=== PATIENT | male | born 1950 | race Two or more races ===

== ENCOUNTER 2024-12-02 07:53 | Outpatient (AMB) | payer MEDICARE, SELFPAY ==
--- NOTE | 2024-12-02 07:59 | MHC.OFFVIS ---
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 HX of similar pain back in 2000. Patient reports a Slip and fall, landing on the right shoulder 09/25/24. Patient has been seen with [facility] and started physical therapy. MRI was ordered but denied at the time. He states that PT help him. Patient reports he is getting better but he is still having some discomfort. 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 The pain initiated following a fall on September 25, where the patient attempted to brace himself using his hand, leading to immediate shoulder pain. He engaged in physical therapy with some improvement in motion but continues to face limitation in fully elevating the shoulder, especially past 90 degrees, and discomfort with posterior reach. The symptoms are suspected by the patient to be associated with inflammation. Diabetes mellitus is a chronic condition in this patient and remains poorly controlled, contributing to complications in treatment options. [facility], [facility] Social History (Updated 12/02/24 @ 08:14 by Padmaja Loyola) Alcohol intake: never Patient Tobacco Use Status: Never used Tobacco Current occupational status: employed Current occupation: therapist Review of Systems Const All systems reviewed & are unremarkable except as noted in HPI and below Physical Exam Vital Signs: BMI result Body Mass Index 25.4 Const General: cooperative, healthy appearing and no acute distress Resp Effort & Inspection: normal respiratory effort and able to speak in complete sentences Cardio Rate: regular rate Peripheral pulses: Peripheral pulses 2+ throughout Skin Lesions: no lesions Rashes: no rashes Extrem Other: Right shoulder: Forward flexion abduction to 90 degrees. Able to reach T12. Able to reach end range with external rotation. No pain with cross-body reach. 3/5 strength with empty can. 5/5 strength with belly press and left off. Negative drop-arm. NVI. Office Procedures AMB Joint Injection/Aspiration Joint Injection/Aspiration Primary Site: right shoulder Prep: site was prepped using aseptic technique, ethochloride spray was applied and injection warnings given Injected: 40 mg of, DepoMedrol, with 8 mL of (2% plain lidocaine) and in the subcromial space Approach Used: posterolateral Procedure: The patient tolerated the procedure well, but had some pain with the injection and there was some relief with the local anesthesia Coding 91501 - Large joint Procedure code (CPT) selection complete Assessment & Plan Assessment & Plan (1) Painful arc syndrome of left shoulder: Code(s): M75.102 - Unspecified rotator cuff tear or rupture of left shoulder, not specified as traumatic Category: Medical (2) Rotator cuff injury: Code(s): S46.009A - Unspecified injury of muscle(s) and tendon(s) of the rotator cuff of unspecified shoulder, initial encounter Category: Medical (3) Diabetes: Code(s): E11.9 - Type 2 diabetes mellitus without complications Category: Medical Plan The patient is a 74-year-old right hand dominant male presenting with right shoulder pain. The pain initiated following a fall on September 25, where the patient attempted to brace himself using his hand, leading to immediate shoulder pain. He engaged in physical therapy with some improvement in motion but continues to face limitation in fully elevating the shoulder, especially past 90 degrees, and discomfort with posterior reach. The symptoms are suspected by the patient to be associated with inflammation. Diabetes mellitus is a chronic condition in this patient and remains poorly controlled, contributing to complications in treatment options. The patient was offered a cortisone injection in the right shoulder with 40 mg of DepoMedrol. The patient was explained the risks, benefits, and alternatives to receiving this injection. After receiving consent for the injection, the patient had the procedure done while in the office today. The patient tolerated the procedure well with no complications. Due to the patient?s history of diabetes, they were instructed to monitor their blood glucose level. The patient was informed that they could see a rise in their numbers and if the numbers became too high, they were instructed to call their PCP. The patient was also informed that they could have facial flushing as a side effect of the injection, but this will pass. Patient will continue with the next 4-6 weeks of physical therapy. He will follow-up in 4-6 weeks by telephone, after completing a course of therapy. At that time if the patient is not progressing with physical therapy an MRI would be ordered to further evaluate the integrity of that shoulder and surrounding structures. X-rays of the right shoulder which were obtained while in the office today and were reviewed by me, Laurel Hartman PA-C, revealed no acute fracture dislocation. Orders: Orders XR shoulder RT min 2V Today M25.519 - Pain in unspecified shoulder Coding Level of Care Code New Pt Level 4 (12575) Diagnoses Painful arc syndrome of left shoulder M75.102 Rotator cuff injury S46.009A Diabetes E11.9 CPT Codes Coding - 23897 Large joint: 19790 - Large joint ([id number])
[2024-12-02 08:15] VITALS: BMI 25.4
== END 2024-12-02 09:02 | disposition home or self-care (01) ==
LOC: HO.HOS 07:53
PROVIDERS: Visit Provider Physician Assistant
DX: M75.101 Unspecified rotator cuff tear or rupture of right shoulder, not specified as traumatic (principal); S46.001A Unspecified injury of muscle(s) and tendon(s) of the rotator cuff of right shoulder, initial encounter; E11.9 Type 2 diabetes mellitus without complications
CPT/HCPCS: 20610; 99204

== ENCOUNTER → 2024-12-02 07:54 | Outpatient (BNV) | payer MEDICARE, SELFPAY | PROVIDERS: Visit Provider Radiology Diagnostic Radiology | DX: M25.511 Pain in right shoulder (principal) | CPT/HCPCS: 73030 ==

== ENCOUNTER 2024-12-02 08:06 | Outpatient (REF) | payer MEDICARE, SELFPAY ==
--- NOTE | ~2024-12-02 | XR_ITS ---
EXAMINATION: XR SHOULDER, RIGHT CLINICAL INFORMATION: M25.519 - Pain in unspecified shoulder COMPARISON: None available. TECHNIQUE: Three views of the right shoulder. FINDINGS: No acute cortical disruption or malalignment. Sclerotic margins with deformity at the greater tuberosity/humeral head. Sclerosis at the articular surface of the acromion. XR/XR shoulder RT min 2V IMPRESSION: Degenerative changes without acute fracture or dislocation. Electronically signed by: Luis Seay MD 12/02/2024 08:05 AM EDT
== END 2024-12-02 08:07 | disposition home or self-care (01) ==
LOC: HO.HOSX 08:06
PROVIDERS: Visit Provider Physician Assistant
DX: M75.101 Unspecified rotator cuff tear or rupture of right shoulder, not specified as traumatic (principal); E11.9 Type 2 diabetes mellitus without complications
CPT/HCPCS: 20610; 73030; 99202; J1010; J2003

== ENCOUNTER 2025-01-09 14:50 | Outpatient (AMB) | payer MEDICARE, SELFPAY ==
--- NOTE | 2025-01-09 14:50 | A.OFFVIS_ITS ---
Intake Visit Reasons: TH- RT shoulder sprain slip/fall DOI 09/25/24 Intake Note: Riley is a 74 year old male who presents today via telephone for follow up his right shoulder sprain status post slip and fall on 09/25/24 and to see how he is doing with PT. Allergies iodine Allergy (Verified 01/09/25 14:53) Rash HPI HPI TH- RT shoulder sprain slip/fall DOI 09/25/24: Details: Mr. Boland is a 74-year-old right-hand dominant male who is following up via telehealth appointment for right shoulder pain. Date of injury was 09/25/2024 after a slip and fall landing directly onto the right shoulder. He has been seen with team [facility] and started physical therapy. An MRI was ordered but denied. He states physical therapy helped him but he still had some discomfort. At his last appointment on 11/12/2024 we decided to continue with physical therapy for 4-6 weeks until his course has been completed. Additionally, we did a right shoulder cortisone injection. He states that this helped some but continues to have pain. Patient is looking to move forward with MRI imaging of the right shoulder. [facility] Social History (Updated 12/02/24 @ 08:14 by Padmaja Loyola) Alcohol intake: never Patient Tobacco Use Status: Never used Tobacco Current occupational status: employed Current occupation: therapist Review of Systems Const All systems reviewed & are unremarkable except as noted in HPI and below Physical Exam Extrem Other: Deferred due to telehealth Telehealth Telehealth Telehealth Platform: Telephone Location of provider rendering services: practice address Patient Identification confirmed using: Name, : Yes Telehealth method: voice only Patient verbally consented to treatment: Yes Patient verbally consented to billing insurance company: Yes Patient informed of any privacy concerns related to visit: Yes Minutes spent on Phone/Video with Pt.: 15 Assessment & Plan Assessment & Plan (1) Rotator cuff injury: Code(s): S46.009A - Unspecified injury of muscle(s) and tendon(s) of the rotator cuff of unspecified shoulder, initial encounter Category: Medical (2) Painful arc syndrome of right shoulder: Code(s): M75.101 - Unspecified rotator cuff tear or rupture of right shoulder, not specified as traumatic Category: Medical Plan Mr. Boland is a 74-year-old right-hand dominant male who is following up via telehealth appointment for right shoulder pain. Date of injury was 09/25/2024 after a slip and fall landing directly onto the right shoulder. He has been seen with team rehab and started physical therapy. An MRI was ordered but denied. He states physical therapy helped him but he still had some discomfort. At his last appointment on 11/12/2024 we decided to continue with physical therapy for 4-6 weeks until his course has been completed. Additionally, we did a right shoulder cortisone injection. He states that this helped some but continues to have pain. Patient is looking to move forward with MRI imaging of the right shoulder. I have placed an order for an MRI of the right shoulder to further evaluate the integrity of the left shoulder and surrounding structures. Patient will follow up after the MRI imaging is obtained, sooner if needed. Orders: Orders MR shoulder RT wo con Today M75.101 - Unspecified rotator cuff tear or rupture of right shoulder, not specified as traumatic Coding Level of Care Code Tele Est Pt Level 3 (60019) Diagnoses Rotator cuff injury S46.009A Painful arc syndrome of right shoulder M75.101
== END 2025-01-09 15:37 | disposition home or self-care (01) ==
LOC: HO.HOS 14:50
PROVIDERS: PCP Internal Medicine; Visit Provider Physician Assistant
DX: S46.001A Unspecified injury of muscle(s) and tendon(s) of the rotator cuff of right shoulder, initial encounter (principal); M75.101 Unspecified rotator cuff tear or rupture of right shoulder, not specified as traumatic
CPT/HCPCS: 99213

== ENCOUNTER → 2025-01-09 14:50 | Outpatient (BNVA) | payer MEDICARE, SELFPAY | PROVIDERS: PCP Internal Medicine; Visit Provider Physician Assistant ==